=== PATIENT | female | born 1980 | race African-American/Black ===

== ENCOUNTER 2017-09-21 21:53 | Emergency (ER) | payer OTHER ==
[~2017-09-21] VITALS: Ht 175.3 cm; Wt 117.9 kg
[~2017-09-21 21:53] MED LIST: IBUP-1060 PO; PROAIR HFA8.5 GM IH
[2017-09-21 22:06] VITALS: BP 133/75
[2017-09-21] MEDS ORDERED: predniSONE 20 MG TABLET PO ONE (22:15)
[2017-09-21] MEDS ORDERED: DICL50TA2 PO (22:24)
[2017-09-21] MEDS ORDERED: METH4TAB2 PO (22:24)
--- NOTE | 2017-09-21 22:25 | PHYS DOC ---
Past Medical History Past Medical History: Bronchitis Additional Past Medical Histor: bilat chronic knee pain Past Surgical History: Appendectomy, , TURP Additional Past Surgical Histo: c sect x 3 Alcohol Use: None Drug Use: None Adult General Chief Complaint Chief Complaint: KNEE INJURY HPI HPI Patient is a 37 year old female with a history of bronchitis, arthritis to her knees, who presents today with 7 out of 10 sharp bilateral knee pain that began today that she attributes to her chronic arthritis. Patient denies any trauma. She states she took 1200 mg of ibuprofen with no relief. She states she used to follow-up with an orthopedic doctor [facility] as well as [facility] but stopped following up when her pain had subsided. She states due to the rain today her pain returned. Patient states pain is worse on ambulation. Review of Systems Review of Systems Constitutional: Denies fever or chills [] Musculoskeletal: Reports bilateral knee pain Integument: Denies rash or skin lesions [] Neurologic: Denies headache, focal weakness or sensory changes [] All other systems were reviewed and found to be within normal limits, except as documented in this note. Current Medications Current Medications Current Medications Medications (Trade) Dose Ordered Sig/Reyes Start Time Stop Time Status Last Admin Dose Admin Prednisone (Prednisone) 60 mg 1X ONCE 09/21/17 22:15 09/21/17 22:16 DC Allergies Allergies Allergies Coded Allergies Type Severity Reaction Last Updated Verified fentanyl Allergy Unknown 09/21/17 Yes metronidazole Allergy Unknown 09/21/17 Yes tramadol Allergy Unknown 09/21/17 Yes Physical Exam Physical Exam Constitutional: Well developed, well nourished, no acute distress, non-toxic appearance. [] Skin: Warm, dry, no erythema, no rash. [] Back: No tenderness, no CVA tenderness. [] Extremities: Overweight patient, bilateral knees with no obvious deformity. No tenderness on palpation of bilateral knees. Full range of motion to bilateral knees, negative Jessica sign and negative Anne's sign negative anterior- posterior drawer sign to bilateral knees. +2 bilateral pedal pulses. Cap refill less than 2 seconds bilateral toes, sensation intact bilateral lower extremities. Neurologic: Alert and oriented X 3, normal motor function, normal sensory function, no focal deficits noted. [] Psychologic: Affect normal, judgement normal, mood normal. [] Current Patient Data Vital Signs Vital Signs Date Time Temp Pulse Resp B/P (MAP) Pulse Ox O2 Delivery O2 Flow Rate FiO2 09/21/17 22:06 98.0 72 18 133/75 (94) 98 Room Air 98.0 EKG EKG [] Radiology/Procedures Radiology/Procedures [] Course & Med Decision Making Course & Med Decision Making Pertinent Labs and Imaging studies reviewed. (See chart for details) This is a 37-year-old female patient presenting to the ED today with bilateral knee pain from arteritis, no known injury. Patient will be discharged with diclofenac and Medrol dosepak. Emphasized importance of following up with orthopedic doctor. Ice elevation encouraged her to return precautions and discharged in stable condition. Dragon Disclaimer Dragon Disclaimer This electronic medical record was generated, in whole or in part, using a voice recognition dictation system. Departure Departure Impression: Primary Impression: Chronic knee pain Additional Impressions: Right knee DJD Left knee DJD Disposition: HOME, SELF-CARE Condition: STABLE Referrals: NO PCP (PCP) CANDICE POPE MD follow up in 1 week Patient Instructions: Arthritis, Degenerative-Brief, Knee Pain, [id number] Additional Instructions: You were seen in the emergency room for bilateral knee pain from arthritis. Please ice and elevate the affected extremities. Take the prescribed medications as needed for pain. Follow-up with orthopedic doctor in one week. Scripts Methylprednisolone (MEDROL) 4 Mg Tab.ds.pk 1 PKG PO UD, #1 PKG Prov: BERYL LUI TAVARES 09/21/17 Diclofenac Potassium (DICLOFENAC POTASSIUM) 50 Mg Tablet 1 TAB PO BID, #60 TAB 1 Refill Prov: DAVIDBERYL BEASLEY TAVARES 09/21/17 Problem Qualifiers Primary Impression: Chronic knee pain Laterality: bilateral Qualified Codes: M25.561 - Pain in right knee; M25.562 - Pain in left knee; G89.29 - Other chronic pain Additional Impressions: Right knee DJD Osteoarthritis type: unspecified Qualified Codes: M17.11 - Unilateral primary osteoarthritis, right knee Left knee DJD Osteoarthritis type: unspecified Qualified Codes: M17.12 - Unilateral primary osteoarthritis, left knee BERYL LUI TAVARES Sep 21, 2017 22:25
== END 2017-09-21 23:00 | disposition home or self-care (01) ==
LOC: ER 21:53
DX: G89.29 Other chronic pain (principal); M17.11 Unilateral primary osteoarthritis, right knee; M17.12 Unilateral primary osteoarthritis, left knee; Z88.4 Allergy status to anesthetic agent; Z88.8 Allergy status to other drugs, medicaments and biological substances
CPT/HCPCS: 99283; J7512